=== PATIENT | female | born 1980 | race Caucasian/White ===

== ENCOUNTER 2018-09-28 13:19 | Emergency (ER) | payer OTHER ==
[~2018-09-28] VITALS: Ht 162.6 cm; Wt 59.4 kg
== END 2018-09-28 16:27 | disposition home or self-care (01) ==
LOC: ER 13:19
DX: S13.8XXA Sprain of joints and ligaments of other parts of neck, initial encounter (principal); S29.8XXA Other specified injuries of thorax, initial encounter; V49.59XA Passenger injured in collision with other motor vehicles in traffic accident, initial encounter; Y93.89 Activity, other specified; Y92.488 Other paved roadways as the place of occurrence of the external cause; Y99.8 Other external cause status

== ENCOUNTER 2019-10-06 11:32 | Outpatient (CLI) | payer OTHER ==
[~2019-10-06 11:32] MED LIST: NORFLEX100MG PO
== END 2019-10-06 11:48 | disposition home or self-care (01) ==
LOC: LAB 11:32
DX: J20.0 Acute bronchitis due to Mycoplasma pneumoniae (principal)

== ENCOUNTER 2020-07-07 13:49 | Outpatient (CLI) | payer OTHER | END 2020-07-07 15:00 | disposition home or self-care (01) | LOC: LAB 13:49 | PROVIDERS: ATTEND General Practice | DX: J11.1 Influenza due to unidentified influenza virus with other respiratory manifestations (principal); Z20.828 Contact with and (suspected) exposure to other viral communicable diseases; R07.89 Other chest pain; R53.81 Other malaise; Z11.59 Encounter for screening for other viral diseases ==

== ENCOUNTER 2022-06-22 09:08 | Outpatient (CLI) | payer OTHER | END 2022-06-22 09:20 | disposition home or self-care (01) | LOC: SONOGRAMA 09:08 | PROVIDERS: ATTEND Internal Medicine Gastroenterology | DX: R10.84 Generalized abdominal pain (principal) ==